=== PATIENT | male | born 1960 | race Caucasian/White ===

== ENCOUNTER 2017-03-15 19:55 | Emergency (ER) | payer MEDICAID, OTHER ==
[2017-03-15 20:26] VITALS: RESP 18
--- NOTE | 2017-03-15 23:26 | EDPHY ---
H & P Smoking Status: Never smoked Time Seen by Provider: 03/15/17 20:18 HPI/ROS: CHIEF COMPLAINT: Fall, scalp laceration HISTORY OF PRESENT ILLNESS: 56-year-old male presents to the emergency department with large scalp laceration. The patient tripped over a plantar in hit the left side of his head. Did not lose consciousness. He describes diffuse headache and some mild right-sided neck pain. He denies chest pain or difficulty breathing. He denies any presyncopal symptoms prior to his fall. Denies injury to upper or lower extremities. Denies abdominal pain. Denies vomiting. He does not take anticoagulants. REVIEW OF SYSTEMS: Constitutional: No fever, no chills. Eyes: No double or blurry vision. ENT: No sore throat. Respiratory: No cough, no shortness of breath. Cardiac: No chest pain. Gastrointestinal: No abdominal pain, vomiting or diarrhea. Genitourinary: No dysuria. Musculoskeletal: No neck or back pain. Skin: Scalp laceration. No rashes. Neurological: No headache. (Debra Gomez) Past Medical/Surgical History: Intracranial bleeding, hypertension, CVA, seizure (Jason,Debra M) Social History: (Debra Gomez) Physical Exam: General Appearance: Alert, no distress. Mentating normally and answering questions appropriately. He is hypertensive. Eyes: Pupils equal and round. Extraocular motions are all intact. ENT: Mouth: Mucous membranes moist. Respiratory: No wheezing, rhonchi, or rales, lungs are clear to auscultation. Cardiovascular: Regular rate and rhythm. Gastrointestinal: Abdomen is soft and nontender, no masses, no rebound or guarding, bowel sounds normal. Neurological: Alert and oriented x 3, cranial nerves II through XII grossly intact Skin: Large 6 cm left parietal scalp laceration. Warm and dry, no rashes. Musculoskeletal: Nontender to palpate along the cervical, thoracic or lumbar spine. Neck is supple. Extremities: Full range of motion and no peripheral edema. Psychiatric: Patient is oriented X 3, there is no agitation. (Debra Gomez M) Constitutional: Initial Vital Signs Temperature (C) 36.8 C 03/15/17 20:23 Heart Rate 62 03/15/17 20:23 Respiratory Rate 18 03/15/17 20:23 Blood Pressure 179/109 H 03/15/17 20:23 O2 Sat (%) 100 03/15/17 20:23 O2 Delivery Mode Room Air Allergies/Adverse Reactions: hydralazine Allergy (Severe, Verified 06/24/16 15:55) Other-Enter Comments nicardipine HCl [From Cardene] Allergy (Verified 10/07/15 17:03) Home Medications: Medication Instructions Recorded Telmisartan 80 mg PO DAILY 06/24/16 Herbals/Supplements -Info Only 1 ea PO DAILY 08/04/16 Chlorthalidone [Chlorthalidone 25 25 mg PO DAILY #30 tab 08/05/16 mg (*)] Gabapentin [Neurontin 300 MG (*)] 300 mg PO TID #90 cap 08/05/16 LYRICA 03/15/17 Medical Decision Making - Diagnostics Imaging: Discussed imaging studies w/ call center supervisor Radiologist Procedures: Laceration repair. Verbal consent was obtained from the patient. The 6 cm laceration on the left parietal scalp was anesthetized using 1% lidocaine with epinephrine. The wound was irrigated with saline, draped and explored to its base with a gloved finger. There were no deep structures involved. No tendon injury was identified. The wound was repaired with 15 aishwarya. The wound repair was complex. The procedure was performed by myself. (Debra Gomez) ED Course/Re-evaluation: 56-year-old male presents to the emergency department with head injury. The patient had CT imaging of the head and cervical spine given his mechanism as well as past medical history of previous bleed. CT imaging reveals no acute abnormality. Patient has a large scalp laceration that was repaired, see procedure note. Was given closed-head injury precautions. The patient tells me that he has a history of hypertension and he is frequently hypertensive. His family is at bedside. They are comfortable bringing him home. He was given closed-head injury precautions. (Debra Gomez) Differential Diagnosis: Head injury including but not limited to concussion, skull fracture, intraparenchymal contusion, subarachnoid, subdural and epidural hematoma. (Debra Gomez) Other Provider: The patient was evaluated and managed by the physician assistant drafter. I have reviewed this chart and I agree with the findings and plan of care as documented , as indicated by my signature. I am the secondary supervising physician. ( Kelly Dos Santos) Departure - Departure Disposition: Home, Routine, Self-Care Clinical Impression: Closed head injury Qualifiers: Encounter type: initial encounter Qualified Code(s): S09.90XA - Unspecified injury of head, initial encounter Scalp laceration Qualifiers: Encounter type: initial encounter Qualified Code(s): S01.01XA - Laceration without foreign body of scalp, initial encounter Condition: Good Instructions: Care For Your Stitches (ED), Laceration (ED), Head Injury (ED), Acute Wounds (ED) Additional Instructions: Avoid any activity that might put you at risk for another head injury for at least 1 week. Return to the emergency department if he developed worsening headache, vomiting, altered mental status, or if you feel worse in any way. Wound Care Follow-Up: Removal of sutures in 7 days. Suture removal is complimentary in uncomplicated cases. Infection or abnormal findings would require reevaluation by the MD. In that case, you may be billed. Referrals: Adam Lopez MD [Medical Doctor] - As per Instructions (Primary care provider mechatronics technician)
[2017-03-15 23:38] VITALS: BP 159/82; PULSE 73; TEMP 97.9; O2SAT 97
== END 2017-03-15 23:38 | disposition home or self-care (01) ==
LOC: EDUNIT#
PROC: 0HQ0XZZ Repair Scalp Skin, External Approach (ICD-10-PCS; principal; 2017-03-15)
DX: S01.01XA Laceration without foreign body of scalp, initial encounter (principal); I10 Essential (primary) hypertension; Z86.73 Personal history of transient ischemic attack (TIA), and cerebral infarction without residual deficits; W01.10XA Fall on same level from slipping, tripping and stumbling with subsequent striking against unspecified object, initial encounter; Y99.8 Other external cause status